=== PATIENT | female | born 1965 | race Two or more races ===

== ENCOUNTER 2024-10-17 06:32 | Inpatient (IN) | payer MEDICARE, OTHER ==
[~2024-10-17] VITALS: Ht 154.9 cm; Wt 60.3 kg
[2024-10-17] MEDS ORDERED: dexaMETHasone SOD PHOSPHATE 2 ML ONE (06:55)
[2024-10-17] MEDS ORDERED: ANESTHESIA TRAY IN PYXIS 1 EA TRAY MC ONE (06:55)
[2024-10-17] MEDS ORDERED: VANCOMYCIN 1 GM VIAL ONE (06:56)
[2024-10-17] MEDS ORDERED: OXYMETAZOLINE HCL NASAL SPRAY 30 ML BOTTLE NS ONE (06:56)
[2024-10-17] MEDS ORDERED: LIDOCAINE 2%-EPI 1:100,000 30 ML VIAL ONE (06:56)
[2024-10-17 07:07] LABS: PREGNANCY TEST URINE QUAL NEGATIVE (NEGATIVE)
[2024-10-17] MEDS ORDERED: FENTANYL PF 250MCG/5ML AMPUL ONE (07:16)
[2024-10-17] MEDS ORDERED: ROCURONIUM BROMIDE 50 MG/5 ML ONE (07:17)
[2024-10-17] MEDS ORDERED: ALBUTEROL FS 2.5 MG/3 ML VIAL.NEB ONE (07:19)
[2024-10-17] MEDS ORDERED: ALBUTEROL FS 2.5 MG/3 ML VIAL.NEB NEB PRN (08:00)
[2024-10-17] MEDS ORDERED: FENTANYL PF 100MCG/2ML AMPUL ONE ×2 (10:07→10:26)
[2024-10-17] MEDS ORDERED: ALBUTEROL FS 2.5 MG/0.5 ML VIAL.NEB NEB PRN (12:00)
[2024-10-17] MEDS ORDERED: ACETAMINOPHEN 325 MG TABLET PO PRN ×2 (12:00)
[2024-10-17] MEDS ORDERED: hydrALAZINE HCL IV 20 MG VIAL IV PRN (12:00)
[2024-10-17] MEDS ORDERED: ONDANSETRON HCL/PF 4 MG/2 ML VIAL IV PRN (12:00)
[2024-10-17] MEDS ORDERED: HYDROMORPHONE 1 MG/1 ML DISP.SYRIN IV PRN (12:00)
[2024-10-17] MEDS: IV NS 0.9% 1,000 ML IV PRN (12:07)
[2024-10-17] MEDS ORDERED: GABA300C PO (12:35)
[2024-10-17] MEDS ORDERED: ALPR1TAB7 PO (12:35)
[2024-10-17] MEDS ORDERED: LORA2TAB95 PO (12:35)
[2024-10-17] MEDS ORDERED: CEVI30CA PO (12:35)
[2024-10-17] MEDS ORDERED: TIZA-180 PO (12:35)
[2024-10-17] MEDS ORDERED: LIDO30AD10 TP (12:35)
[2024-10-17] MEDS ORDERED: SUCR1TAB PO (12:35)
[2024-10-17] MEDS ORDERED: LIDOCAINE 5% (PATCH) 1 EA PATCH TP PRN (13:30)
[2024-10-17] MEDS: ACETAMINOPHEN W/ CODEINE#3 1 EA TABLET PO PRN (13:41)
[2024-10-17 16:00] VITALS: BP 127/70; TEMP 98.2; O2SAT 99
[2024-10-17] MEDS: SUCRALFATE 1 G TABLET PO SCH (17:42)
[2024-10-17] MEDS: VANCOMYCIN 1 GM in IV D5W 250ml IV SCH (18:00)
[2024-10-17 20:43] VITALS: BP 97/77; TEMP 97.7; O2SAT 96
[2024-10-17] MEDS ORDERED: CEVIMELINE HCL 30 MG PO SCH (22:00)
[2024-10-17] MEDS: GABAPENTIN 300 MG CAPSULE PO SCH (23:12)
[2024-10-17] MEDS: ALPRAZOLAM 1 MG TABLET PO SCH (23:13)
[2024-10-18 06:44] LABS: BASOPHILS % (AUTO) 0.1 % (0.0-2.0); EOSINOPHILS # (AUTO) 0.2 K/uL (0.0-0.7); EOSINOPHILS % (AUTO) 2.6 % (0.0-6.0); HEMATOCRIT 32 % (33-45); HEMOGLOBIN 10.8 g/dL (11.5-14.8); LYMPHOCYTES # (AUTO) 0.8 K/uL (0.8-4.8); LYMPHOCYTES % (AUTO) 9.4 % (20.0-44.0); MEAN CORPUSCULAR HEMOGLOBIN 32 PG (26.0-33.0); MEAN CORPUSCULAR HGB CONC 34 g/dl (31.0-36.0); MEAN CORPUSCULAR VOLUME 95 fL (82-100); MONOCYTES # (AUTO) 0.7 K/uL (0.1-1.30); MONOCYTES % (AUTO) 8.2 % (2.0-12.0); NEUTROPHILS # (AUTO) 6.7 K/uL (1.8-8.9); NEUTROPHILS % (AUTO) 79.7 % (43.0-81.0); PLATELET COUNT (AUTO) 182 K/uL (150-450); RED BLOOD CELL COUNT(AUTO) 3.36 MIL/uL (4.0-5.2); RED CELL DISTRIBUTION WIDTH 13.9 % (11.5-15.0); WHITE BLOOD COUNT (AUTO) 8.4 K/uL (4.3-11.0)
[2024-10-18 07:01] LABS: ALBUMIN 2.8 g/dL (3.4-5.0); BILIRUBIN,TOTAL 0.3 mg/dL (0.2-1.0); CALCIUM, SERUM 8.2 mg/dL (8.5-10.1); CREATININE 0.7 mg/dL (0.6-1.3); MAGNESIUM 2.8 mg/dL (1.8-2.4); PHOSPHORUS 3.4 mg/dL (2.5-4.9); POTASSIUM 5.2 mmol/L (3.5-5.1); TOTAL PROTEIN, SERUM 6.1 g/dL (6.4-8.2)
[2024-10-18 08:36] VITALS: BP 102/66; TEMP 97.7; O2SAT 99
== END 2024-10-18 18:53 | disposition home or self-care (01) | DRG 142 ==
LOC: DS 06:32 → MED 11:12
PROVIDERS: ADMIT Internal Medicine; ATTEND Internal Medicine
PROC: 09BR0ZZ Excision of Left Maxillary Sinus, Open Approach (ICD-10-PCS; 2024-10-17)
PROC: 0NUR07Z Supplement Maxilla with Autologous Tissue Substitute, Open Approach (ICD-10-PCS; 2024-10-17)
PROC: 09UR07Z Supplement Left Maxillary Sinus with Autologous Tissue Substitute, Open Approach (ICD-10-PCS; 2024-10-17)
PROC: 09UQ07Z Supplement Right Maxillary Sinus with Autologous Tissue Substitute, Open Approach (ICD-10-PCS; 2024-10-17)
PROC: 0N5V0ZZ Destruction of Left Mandible, Open Approach (ICD-10-PCS; 2024-10-17)
PROC: 0N5T0ZZ Destruction of Right Mandible, Open Approach (ICD-10-PCS; 2024-10-17)
PROC: 0NSV04Z Reposition Left Mandible with Internal Fixation Device, Open Approach (ICD-10-PCS; 2024-10-17)
PROC: 0NST04Z Reposition Right Mandible with Internal Fixation Device, Open Approach (ICD-10-PCS; 2024-10-17)
PROC: 09BQ0ZZ Excision of Right Maxillary Sinus, Open Approach (ICD-10-PCS; 2024-10-17)
PROC: 0NUV07Z Supplement Left Mandible with Autologous Tissue Substitute, Open Approach (ICD-10-PCS; principal; 2024-10-17 07:30)
DX: S02.411A LeFort I fracture, initial encounter for closed fracture (principal); S02.40DA Maxillary fracture, left side, initial encounter for closed fracture; M27.2 Inflammatory conditions of jaws; S02.40CA Maxillary fracture, right side, initial encounter for closed fracture; M27.49 Other cysts of jaw; Z98.890 Other specified postprocedural states; Z87.19 Personal history of other diseases of the digestive system; J45.909 Unspecified asthma, uncomplicated; Z82.49 Family history of ischemic heart disease and other diseases of the circulatory system; E07.9 Disorder of thyroid, unspecified; Z79.899 Other long term (current) drug therapy; X58.XXXA Exposure to other specified factors, initial encounter; Y92.9 Unspecified place or not applicable; S02.609A Fracture of mandible, unspecified, initial encounter for closed fracture; M60.9 Myositis, unspecified; J32.9 Chronic sinusitis, unspecified; D16.4 Benign neoplasm of bones of skull and face; D16.5 Benign neoplasm of lower jaw bone
CPT/HCPCS: 36415; 80053-TC; 83735-TC; 84100-TC; 84703-TC; 85025-TC; 88305-TC; 88311-TC; 94799-TC; A4338; C1713; G0378; J0690; J1100; J2704; J3010; J3370; J3490; J7060